=== PATIENT | male | born 1965 | race Caucasian/White ===

== ENCOUNTER 2021-07-15 15:43 | Inpatient (IN) ==
[2021-07-15] MEDS ORDERED: HEPARIN SOD (PORCINE) 1000 UNIT/ML ONE (15:48)
[2021-07-15] MEDS ORDERED: TICAGRELOR 90 MG TAB PO ONE (15:48)
[2021-07-15] MEDS ORDERED: AMIODARONE 150MG / 100ML D5W IV ONE (15:48)
[2021-07-15] MEDS ORDERED: HEPARIN (PORCINE) 1000 UNIT/ML 10 ML (CATH LAB USE ONLY) ONE (15:50)
[2021-07-15] MEDS ORDERED: niCARdipine HCL INJ 2.5 MG/ML 10 ML AMP ONE (15:50)
[2021-07-15] MEDS ORDERED: MIDAZOLAM HCL 1 MG/ML 2ML VIAL ONE (15:50)
[2021-07-15] MEDS ORDERED: NITROGLYCERIN/D5W 100MCG/ML 20ML SYR ONE (15:51)
[2021-07-15] MEDS ORDERED: fentaNYL citrate 100 MCG/2 ML VIAL ONE (15:51)
[2021-07-15] MEDS ORDERED: METOPROLOL TARTRATE 1 MG/ML VIAL IV ONE (15:56)
[2021-07-15 16:05] LABS: Basophils % (auto) 0.7 %; Eosinophils # (auto) 0.23 K/uL (0-0.5); Eosinophils % (auto) 1.5 %; Hematocrit (blood only) 41.5 % (42-52); Immature Granulocytes # (auto) 0.22 K/uL (0.00-0.02); Immature Granulocytes % (auto) 1.5 %; Lymphocytes # (auto) 4.83 K/uL (1.2-3.4); Mean Corpuscular Hemoglobin 32.5 pg (25-34); Mean Corpuscular Hgb Conc 36.1 g/dL (32-36); Mean Corpuscular Volume 89.8 fL (80-100); Mean Platelet Volume 10.7 fL (7.4-10.4); Monocytes # (auto) 1.08 K/uL (0.11-0.59); Monocytes % (auto) 7.1 %; Neutrophils # (auto) 8.65 K/uL (1.4-6.5); Neutrophils % (auto) 57.2 %; Platelet Count 252 K/uL (130-400); RDW Coefficient of Variation 12.6 % (11.5-14.5); RDW Standard Deviation 40.8 fL (36.4-46.3); Red Blood Count 4.62 M/uL (4.7-6.1); White Blood Count 15.11 K/uL (4.8-10.8)
--- NOTE | 2021-07-15 16:07 | Pre Anesthesia Assessment ---
Date of Service July 15, 2021 Pre Sedation Assessment Vital Signs Temp Pulse Resp BP Pulse Ox 07/15/21 15:58 155 H 155/123 H 07/15/21 15:45 98.6 F 155 H 20 155/123 H 89 L Cardiovascular + irregularly irregular Respiratory normal respiratory effort, lungs clear to auscultation Pre-Sedation Airway Assessment Smoking Status: Never smoker Hx Sleep Apnea: No Hx Difficult Intubation: No Short, Thick Neck: No Thyromental Distance: > or= 3.5 Finger Breadths Oral Cavity: + WNL Mallampati Class: III ASA: ASA4 Procedure Planning Contraindications for Sedation: none Current Medications Reviewed: Yes Notes The planned sedation has been discussed with the patient. Informed Consent was obtained. I have identified the patient, determined the appropriateness of sedation and have assessed the patient immediately prior to the procedure. All medicine(s) and interventions are by my order.
[2021-07-15 16:10] LABS: iSTAT Creatinine 1.6 mg/dl (0.6-1.3); iSTAT Hemoglobin 13.9 g/dl (14.0-18.0); iSTAT Ionized Calcium 1.15 mmol/l (1.12-1.32); iSTAT Potassium 3.8 mmol/L (3.3-5.0)
--- NOTE | 2021-07-15 16:12 | Cardiology Consultation ---
Date of Consultation July 15, 2021 Assessment & Plan (1) Cardiac arrest: Presentation consistent with a cardiac arrest secondary to acute IA and recommend proceeding with emergent cardiac catheterization and likely primary PCI. No apparent contraindications to procedure. Given IV heparin and ticagrelor 180 mg in the ED. Further recommendations pending findings of coronary angiography. History of Present Illness History of Present Illness 55-year-old man here after out of hospital cardiac arrest with post ROSC ECG concerning for acute IA. Patient seen emergently in the ED after heart alert activated en route. No known prior cardiac history. No other known medical issues or medications. 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 Received immediate bystander CPR. Had a total of 2 shocks in the field before ROSC. Total CPR around 8 minutes. Post ROSC confused but awake. In ED again confused but endorsed chest pain. No other recollection of the event. ECG showed A. fib with RVR to the 150s with inferior ST elevations. Hemodynamically stable. Allergies Allergy/AdvReac Type Severity Reaction Status Date / Time No Known Allergies Allergy Verified 07/15/21 15:53 Home Medications Medication Instructions Recorded Confirmed Type No Known Home Medications 07/15/21 07/15/21 History Patient History Social History Smoking Status: Never smoker Feels Safe at Home: Yes Review of Systems Review of Systems: Not obtained in the setting of emergent situation Physical Exam Physical Exam: General: Confused HEENT: Sclerae anicteric Lungs: Clear anteriorly Cardiac: Tachycardic, irregularly irregular Vascular: 2+ radial bilaterally Abdomen: Soft Extremities: Well perfused, no peripheral edema Results & Data ([facility]) Vital Signs (Past 12 Hours) Vital Signs Temp Pulse Resp BP Pulse Ox 07/15/21 15:58 155 H 155/123 H 07/15/21 15:45 98.6 F 155 H 20 155/123 H 89 L PG Care Time/CCT Total # of Minutes Spent Total Time Spent with Patient: Total time spent is greater than 50% in coordination of care (as documented) at patient's floor/unit and/or counseling patient: Coding Level of Care Code 97584 Inpt Consult Level 4 Diagnoses Cardiac arrest I46.9
[2021-07-15 16:15] LABS: Partial Thromboplastin Ratio 0.9; Partial Thromboplastin Time 23.1 Seconds (21.0-31.0)
--- NOTE | 2021-07-15 16:15 | Electrocardiogram Report ---
Test Reason : Blood Pressure : / mmHG Vent. Rate : 150 BPM Atrial Rate : 141 BPM P-R Int : 000 ms QRS Dur : 100 ms QT Int : 286 ms P-R-T Axes : 000 046 141 degrees QTc Int : 451 ms Atrial fibrillation with rapid ventricular response Incomplete right bundle branch block ST elevation consider inferior injury or acute infarct ACUTE DE / STEMI Consider right ventricular involvement in acute inferior infarct Abnormal ECG No previous ECGs available Confirmed by Kemar Magaña ([id number]) on 07/15/2021 4:14:41 PM Referred By: Confirmed By:Kemar Magaña
[2021-07-15] MEDS ORDERED: ATROPINE SULFATE 0.1 MG/ML 10ML SYR IV ONE (16:22)
--- NOTE | 2021-07-15 16:23 | Emergency Department Note ---
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 They went over he had no pulse. They started CPR. He had CPR for 6 minutes. Please applied AED and he was shocked twice. He woke up for EMS after initially being in the [facility] but almost immediately after this he regained pulses. He was awake talking coming in for EMS. He is complaining that his chest is sore. He is still slightly confused. He denies any headache or change in vision. No belly pain her any other extremity pain. ROS: See above HPI for pertinent positives & negatives. A total of 10 systems reviewed and were otherwise negative. PAST MEDICAL HISTORY:See Below PAST SURGICAL HISTORY:See Below FAMILY HISTORY:See Below SOCIAL HISTORY:See Below HOME MEDICATIONS:See Below ALLERGIES:See Below VITALS:See Below PHYSICAL EXAMINATION: GENERAL: Lying in bed, disheveled, slightly confused HEAD: NC/AT EYE EXAM: normal conjunctiva. PERRL and EOM's grossly intact. OROPHARYNX: no exudate, no erythema, lips, buccal mucosa, and tongue normal and mucous membranes are moist NECK: supple, no nuchal rigidity, no adenopathy, non-tender LUNGS: Clear to auscultation. Normal chest wall mechanics HEART: no murmurs, S1 normal and S2 normal ABDOMEN: abdomen soft, non-tender, normo-active bowel sounds, no masses, no rebound or guarding. UPPER EXTREMITIES: upper extremities are grossly normal. LOWER EXTREMITIES: No pitting edema. NEURO EXAM: Awake oriented to person and place but not year, cranial nerves II- XII grossly intact, normal speech, no gross weakness of arms, no gross weakness of legs. MEDICAL DECISION MAKING: Patient is a 55-year-old male status post cardiac arrest following 2 shocks that presents the ER awake talking but still slightly confused. There is no reported trauma. IVs were established blood work was obtained. Patient was given IV bolus of amiodarone, IV Lopressor 5 mg Brilinta and IV heparin. Heart rate was initially A. fib in the 160s with ST segment elevations in the inferior leads. Initial EKG from EMS just showed A. fib with nonspecific ST wave changes. Heart rate trended down to the low 100s. Heart alert was called after we obtained an EKG upon arrival which showed STEMI. Prior to this I had discussed with Dr. Dickson that this gentleman was coming in. Labs show leukocytosis of 15,000. Significant anemia. BMP with a CO2 of 60 seen [place] secondary to the code. Creatinine was up as well at 1.7 and LFTs were significantly up at 261 and 450. Covid was negative. Chest x-ray was not obtained in the EKG as we did not want to delay Renal Dialysis Technician. Triage Nursing notes reviewed. Limited review of prior medical records performed Vital Signs: reviewed and remarkable for tachycardic Differential diagnosis: Differential diagnoses includes but is not limited to acute coronary syndrome, myocardial infarction, pericarditis, pulmonary embolus, aortic dissection, pneumonia, pneumothorax, musculoskeletal, shingles, esophageal. ER treatment provided: See below Diagnostics interpreted by me: ECG: A. fib rate of 150 Normal axis Inferior STEMI with a right bundle branch block lateral ST depressions and high lateral ST depressions with elevation in aVR Cardiac Monitoring: An order was placed for continuous cardiac monitoring. The monitor shows a rate of 155 with sinus rhythm. Laboratory studies: As stated above and show below. Imaging studies: See below Consultation(s): Patient was seen and evaluated by Dr. Tyler Dickson at bedside in the ER and taken to the Renal Dialysis Technician Procedures: none Critical Care: I have personally spent 35 minutes of critical care time in the direct management of this patient. This includes bedside care, interpretation of diagnostic studies, and testing, discussion with consultants, patient, and family members, and other required patient management activities. This 35 minutes is in excess of all separately billable procedures. Past Med/Surg History Medical History (Updated 07/15/21 @ 18:54 by Amaury Elmore MD) Acute kidney injury Atrial fibrillation with rapid ventricular response Cardiogenic shock ST elevation myocardial infarction (STEMI) of inferior wall Transaminitis Social History Smoking Status: Former smoker Do You Dip or Chew Tobacco: Yes; Hx Alcohol Use: Yes Alcohol type: beer Hx Substance Use: No Preferred Language: Mohawk Communication Ability: Effective Insurance Case Manager Required: No Beliefs That Will Affect Care: None Current Living Situation: Family Current Living Situation Comment: Lives with girlfriend and daughter Other Information That Helps Us Care for You: No Feels Safe at Home: Yes Safety Concerns: Feels Safe At This Time Assistive Devices: Glasses Allergies Allergies Allergy/AdvReac Type Severity Reaction Status Date / Time No Known Allergies Allergy Verified 07/15/21 15:53 Home Meds Home Medications Medication Instructions Recorded Confirmed No Known Home Medications 07/15/21 07/15/21 Results & Data (ED) Vital Signs Vital Signs - 24 hr 07/15/21 15:45 07/15/21 15:49 07/15/21 15:50 Temperature 37.0 C Temperature Source Oral Pulse Rate 155 H 162 H 160 H Pulse Rate from SpO2 Sensor 88 Respiratory Rate 20 Respiratory Effort / Characteristics Spontaneous Respiratory Depth Respiratory Pattern Regular Blood Pressure 155/123 H Blood Pressure [Right Arm] Blood Pressure Mean 133 Blood Pressure Mean [Right Arm] Pulse Oximetry 89 L 93 88 L Oxygen Delivery Method Room Air Oxygen Flow Rate Sepsis Recent Fever Within 48 Hours No Sepsis New/Unexplained Change in Mental Status No Sepsis Action Taken by Nursing No Action Required 07/15/21 15:58 07/15/21 16:01 07/15/21 16:09 Temperature Temperature Source Pulse Rate 155 H 114 H Pulse Rate from SpO2 Sensor 88 Respiratory Rate 20 Respiratory Effort / Characteristics Non-Labored Spontaneous Respiratory Depth Normal Respiratory Pattern Regular Blood Pressure 155/123 H 119/89 Blood Pressure [Right Arm] 119/89 Blood Pressure Mean 99 Blood Pressure Mean [Right Arm] 99 Pulse Oximetry 92 95 Oxygen Delivery Method Nasal Cannula Oxygen Flow Rate 2 Sepsis Recent Fever Within 48 Hours Sepsis New/Unexplained Change in Mental Status Sepsis Action Taken by Nursing 07/15/21 16:29 Temperature Temperature Source Pulse Rate 84 Pulse Rate from SpO2 Sensor Respiratory Rate Respiratory Effort / Characteristics Respiratory Depth Respiratory Pattern Blood Pressure Blood Pressure [Right Arm] Blood Pressure Mean Blood Pressure Mean [Right Arm] Pulse Oximetry Oxygen Delivery Method Oxygen Flow Rate Sepsis Recent Fever Within 48 Hours Sepsis New/Unexplained Change in Mental Status Sepsis Action Taken by Nursing Laboratory Data Result diagrams: 07/15/21 15:55 07/15/21 15:55 Lab Results 07/15/21 07/15/21 07/15/21 Range/Units 15:55 15:55 15:55 WBC 15.11 H (4.8-10.8) K/uL RBC 4.62 L (4.7-6.1) M/uL Hgb 15.0 (14.0-18.0) g/dL POC Hgb (14.0-18.0) g/dl Hct 41.5 L (42-52) % POC Hct (42-52) % MCV 89.8 (80-100) fL MCH 32.5 (25-34) pg MCHC 36.1 H (32-36) g/dL RDW Std Deviation 40.8 (36.4-46.3) fL RDW Coeff of Giulia 12.6 (11.5-14.5) % Plt Count 252 (130-400) K/uL MPV 10.7 H (7.4-10.4) fL Immature Gran % (Auto) 1.5 % Neut % (Auto) 57.2 % Lymph % (Auto) 32.0 % Montague % (Auto) 7.1 % Eos % (Auto) 1.5 % Baso % (Auto) 0.7 % Neut # (Auto) 8.65 H (1.4-6.5) K/uL Lymph # (Auto) 4.83 H (1.2-3.4) K/uL Montague # (Auto) 1.08 H (0.11-0.59) K/uL Eos # (Auto) 0.23 (0-0.5) K/uL Baso # (Auto) 0.10 (0-0.2) K/uL Immature Gran # (Auto) 0.22 H (0.00-0.02) K/uL APTT 23.1 (21.0-31.0) Seconds PTT Ratio 0.9 Activ Coag Time Kaolin (94-140) SECONDS POC Sodium (135-144) mmol/L Sodium 141 (136-145) mmol/L POC Potassium (3.3-5.0) mmol/L Potassium 3.8 (3.5-5.1) mmol/L POC Chloride (101-112) mmol/L Chloride 112 H (98-107) mmol/L Carbon Dioxide 16 L (21-32) mmol/L POC Total CO2 (24-31) mmol/L Anion Gap 14.0 H (3-11) POC Anion Gap (16-25) mmol/L POC BUN (7-18) mg/dl BUN 22 H (7-18) mg/dl Creatinine 1.73 H (0.6-1.4) mg/dl POC Creatinine (0.6-1.3) mg/dl Est Cr Clr Drug Dosing Not Reportable Est GFR ( Amer) 51.1 ml/min Est GFR (Non-Af Amer) 44.1 ml/min BUN/Creatinine Ratio 12.9 (10-20) Glucose 201 H (70-99) mg/dl POC Glucose (other) (70-99) mg/dl Calcium 9.1 (8.5-10.1) mg/dl POC Ioniz Calcium Penny (1.12-1.32) mmol/l Total Bilirubin 0.5 (0.2-1) mg/dl AST 261 H (15-37) U/L ALT 450 H (12-78) U/L Alkaline Phosphatase 57 (45-117) U/L Troponin I 0.269 H* (0-0.045) ng/ml Total Protein 7.3 (6.4-8.2) gm/dl Albumin 3.9 (3.4-5.0) gm/dl Globulin 3.4 (2.5-4.0) gm/dl Albumin/Globulin Ratio 1.1 (0.9-2) Lipase 332 (73-393) U/L Specimen Hemolysis 07/15/21 07/15/21 07/15/21 Range/Units 15:58 16:29 16:42 WBC (4.8-10.8) K/uL RBC (4.7-6.1) M/uL Hgb (14.0-18.0) g/dL POC Hgb 13.9 L (14.0-18.0) g/dl Hct (42-52) % POC Hct 41 L (42-52) % MCV (80-100) fL MCH (25-34) pg MCHC (32-36) g/dL RDW Std Deviation (36.4-46.3) fL RDW Coeff of Giulia (11.5-14.5) % Plt Count (130-400) K/uL MPV (7.4-10.4) fL Immature Gran % (Auto) % Neut % (Auto) % Lymph % (Auto) % Montague % (Auto) % Eos % (Auto) % Baso % (Auto) % Neut # (Auto) (1.4-6.5) K/uL Lymph # (Auto) (1.2-3.4) K/uL [place]ague # (Auto) (0.11-0.59) K/uL Eos # (Auto) (0-0.5) K/uL Baso # (Auto) (0-0.2) K/uL Immature Gran # (Auto) (0.00-0.02) K/uL APTT (21.0-31.0) Seconds PTT Ratio Activ Coag Time Kaolin 169 H 213 H (94-140) SECONDS POC Sodium 143 (135-144) mmol/L Sodium (136-145) mmol/L POC Potassium 3.8 (3.3-5.0) mmol/L Potassium (3.5-5.1) mmol/L POC Chloride 110 (101-112) mmol/L Chloride (98-107) mmol/L Carbon Dioxide (21-32) mmol/L POC Total CO2 17 L (24-31) mmol/L Anion Gap (3-11) POC Anion Gap 21.0 (16-25) mmol/L POC BUN 22 H (7-18) mg/dl BUN (7-18) mg/dl Creatinine (0.6-1.4) mg/dl POC Creatinine 1.6 H (0.6-1.3) mg/dl Est Cr Clr Drug Dosing Est GFR ( Amer) ml/min Est GFR (Non-Af Amer) ml/min BUN/Creatinine Ratio (10-20) Glucose (70-99) mg/dl POC Glucose (other) 202 H (70-99) mg/dl Calcium (8.5-10.1) mg/dl POC Ioniz Calcium Penny 1.15 (1.12-1.32) mmol/l Total Bilirubin (0.2-1) mg/dl AST (15-37) U/L ALT (12-78) U/L Alkaline Phosphatase (45-117) U/L Troponin I (0-0.045) ng/ml Total Protein (6.4-8.2) gm/dl Albumin (3.4-5.0) gm/dl Globulin (2.5-4.0) gm/dl Albumin/Globulin Ratio (0.9-2) Lipase (73-393) U/L Specimen Hemolysis Administered Medications Sodium Chloride (Nss 1000ml) 1,000 mls @ 100 mls/hr IV .Q10H [id number] Last Admin: 07/15/21 18:12 Dose: 100 mls/hr Documented by: [id number] Discontinued Medications Amiodarone HCl/Dextrose (Amiodarone 150mg / 100ml D5w) Confirm Administered Dose 150 mg IV .STK-MED ONE Stop: 07/15/21 15:49 Last Admin: 07/15/21 18:07 Dose: Not Given Documented by: [id number] Atropine Sulfate (Atropine Sulfate 0.1 Mg/Ml 10ml Syr) Confirm Administered Dose 1 mg IV .STK-MED ONE Stop: 07/15/21 16:23 Last Admin: 07/15/21 16:42 Dose: Not Given Documented by: [id number] Fentanyl Citrate (Fentanyl Citrate 100 Mcg/2 Ml Vial) Confirm Administered Dose 100 mcg .ROUTE .STPipewise-MED ONE Stop: 07/15/21 15:52 Last Admin: 07/15/21 16:41 Dose: 50 mcg Documented by: [id number] Heparin Sodium (Porcine) (Heparin Sod (Porcine) 1000 Unit/Ml) Confirm Administered Dose 1,000 units .ROUTE .STK-MED ONE Stop: 07/15/21 15:49 Last Admin: 07/15/21 18:07 Dose: Not Given Documented by: [id number] Heparin Sodium (Porcine) (Heparin (Porcine) 1000 Unit/Ml 10 Ml (Renal Dialysis Technician Use Only)) Confirm Administered Dose 10,000 units .ROUTE .STPipewise-MED ONE Stop: 07/15/21 15:51 Last Admin: 07/15/21 16:42 Dose: 6,000 units Documented by: [id number] Heparin Sodium/Sodium Chloride (Heparin In Nss Infusion 1000 Unit/500 Ml (2 U/Ml) Bag) Confirm Administered Dose 3,000 units IV .STPipewise-MED ONE Stop: 07/15/21 15:52 Last Admin: 07/15/21 16:41 Dose: 3,000 units Documented by: [id number] Metoprolol Tartrate (Metoprolol Tartrate 1 Mg/Ml Vial) Confirm Administered Dose 5 mg IV .STK-MED ONE Stop: 07/15/21 15:57 Last Admin: 07/15/21 15:58 Dose: 5 mg Documented by: [id number] Midazolam HCl (Midazolam Hcl 1 Mg/Ml 2ml Vial) Confirm Administered Dose 2 mg .ROUTE .STK-MED ONE Stop: 07/15/21 15:51 Last Admin: 07/15/21 16:41 Dose: 1 mg Documented by: [id number] Nicardipine HCl (Nicardipine Hcl Inj 2.5 Mg/Ml 10 Ml Amp) Confirm Administered Dose 25 mg .ROUTE .STK-MED ONE Stop: 07/15/21 15:51 Last Admin: 07/15/21 16:42 Dose: 25 mg Documented by: [id number] Nitroglycerin/Dextrose (Nitroglycerin/D5w 100mcg/Ml 20ml Syr) Confirm Administered Dose 2,000 mcg .ROUTE .STK-MED ONE Stop: 07/15/21 15:52 Last Admin: 07/15/21 16:41 Dose: 2,000 mcg Documented by: [id number] Norepinephrine Bitartrate (Norepinephrine Bitartrate 1 Mg/Ml 4 Ml Vial (Renal Dialysis Technician Use Only)) Confirm Administered Dose 8 mg .ROUTE .STK-MED ONE Stop: 07/15/21 16:28 Last Admin: 07/15/21 16:42 Dose: 8 mg Documented by: [id number] Ticagrelor (Ticagrelor 90 Mg Tab) Confirm Administered Dose 180 mg PO .STK-MED ONE Stop: 07/15/21 15:49 Last Admin: 07/15/21 16:42 Dose: 180 mg Documented by: [id number] Discharge Plan Visit Data Chief Complaint: Cardiac Arrest/CPR Stated Complaint: HEART ALERT ED Provider: Anthony Larson Discharge Problem: Cardiac arrest, ST elevation myocardial infarction (STEMI) of inferior wall, Elevated troponin Patient Disposition: Admitted As Inpatient Discharge Instructions Interventions: ED Discharge Assessment Last Done: 07/15/21 16:09
[2021-07-15] MEDS ORDERED: NOREPINEPHRINE BITARTRATE 1 MG/ML 4 ML VIAL (CATH LAB USE ONLY) ONE (16:27)
[2021-07-15 16:55] LABS: Alanine Aminotransferase 450 U/L (12-78); Albumin Globulin Ratio 1.1 (0.9-2); Albumin Level 3.9 gm/dl (3.4-5.0); Alkaline Phosphatase 57 U/L (45-117); Aspartate Aminotransferase 261 U/L (15-37); BUN Creatinine Ratio 12.9 (10-20); Bilirubin,Total 0.5 mg/dl (0.2-1); Blood Urea Nitrogen 22 mg/dl (7-18); Calcium 9.1 mg/dl (8.5-10.1); Carbon Dioxide 16 mmol/L (21-32); Chloride 112 mmol/L (98-107); Est GFR (African American) 51.1 ml/min; Est GFR (Non-African American) 44.1 ml/min; Globulin 3.4 gm/dl (2.5-4.0); Glucose 201 mg/dl (70-99); Lipase 332 U/L (73-393); Potassium 3.8 mmol/L (3.5-5.1); Sodium 141 mmol/L (136-145); Total Protein 7.3 gm/dl (6.4-8.2); Troponin I 0.269 ng/ml (0-0.045)
[2021-07-15] MEDS ORDERED: NITROGLYCERIN SL 0.4 MG/TAB TAB SL PRN (16:55)
[2021-07-15] MEDS ORDERED: ONDANSETRON INJ 2 MG/ML 2 ML VIAL IV PRN (16:55)
[2021-07-15] MEDS ORDERED: ACETAMINOPHEN 325 MG TAB PO PRN (16:55)
--- NOTE | 2021-07-15 16:55 | Post Anesthesia Assessment ---
Date of Service July 15, 2021 Post Sedation Assessment Vital Signs Temp Pulse Resp BP BP Pulse Ox 07/15/21 16:09 114 H 20 95 07/15/21 16:01 119/89 07/15/21 15:58 155 H 155/123 H 07/15/21 15:45 98.6 F 155 H 20 155/123 H 89 L Recovery Score Activity: Moves 4 extremities Respiration: Deep Breath/Cough Circulation: +/-20% PreAnes Value Consciousness: Fully Awake Oxygen Saturation: O2 needed for >90% Discharge Sedation Level of Care: Fast Track Phase II Post Sedation Plan On clinical assessment, the patient appears to have tolerated the sedation without complications. Patient is recovering as anticipated. Patient will continue to be monitored by nursing and may be discharged when sedation discharge criteria are met per below protocol. Upon Completions of procedure up to 15 minutes continue every 5 minute vital signs and the P.A.R. score; then discharge to a Phase I or Fast Track to Phase II per the following guidelines: * Discharge Patient to appropriate Phase II area if PAR is 8 or greater or return to pre- procedure baseline. The post - procedure orders will be as directed. * If PAR score is less than 8 or not return to pre-procedure baseline then patient will follow Phase I monitoring till PAR is reached for Phase II. The Phase I may be done in procedure room or may call to secure a Phase I area. * If naloxone or flumazenil are used for reversal, hold in Phase I for continued monitoring from when last reversal dose was given for a minimum of 60 minutes or longer pending the nurse and/or physician discretion of patient condition before discharge to Phase II. Please call the Sedation Physician to re-evaluate and complete post-note for discharge to Phase II area. Do NOT discharge from procedure sedation or Phase 1 until post- sedation evaluation note is complete by procedure /sedation MD Sedation Discharge Instructions to be given to the patient at discharge to home.
[2021-07-15] MEDS ORDERED: ICU PROTOCOL FOR HYPERGLYCEMIA PRN (17:00)
--- NOTE | 2021-07-15 17:31 | Cardiac Catheterization ---
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 Cardiac Status Clinical evaluation leading to the procedure CAD Presenation: STEMI Anginal Classification: CCS IV Heart Failure: No Cardiogenic Shock within 24 Hours: Yes Cardiac Arrest within 24 Hours: Yes Imaging Studies Past 6 Months: No Stress Studies Past 6 Months: No Left Ventricular Angiography EF (%): 45-50 Wall Motion: Inferior (Hypokinetic) Mitral Regurgitation: None Diagnostic Physicians Name: Wolf Dickson MD Status: Emergency Closure Device Percutaneous Entry Location: Radial Closure Device: Radial Band Recommendations: PCI without planned CABG PCI Indication: Immediate PCI for STEMI First Noted: First EKG Reason For Delay in PCI:: Cardiac Arrest &/or Lesion Segment Name: Proximal RCA Culprit Artery: Yes Stenosis Prior to Rx (%): 100 Chronic Total Occlusion: No IVUS: No FFR: No Pre-Procedure FILI Flow: 0 Previously Treated Lesion: No Lesion Complexity: Non-High/Non-C Lesion Length (mm): 12 Thrombus Present: Yes Bifurcation Lesion: No Guidewire Across Lesion: Stenosis Post-Procedure (%): 0 Post-Procedure FILI Flow: 3 Devices(s) Deployed: Yes Yes Intraprocedure Events Significant Disection: No Perforation: No Cardiac Cath Procedure Full Procedure Date July 15, 2021 Pre-Procedure Diagnosis Pre-Procedure Diagnosis: STEMI AUC Score AUC Score: 9 Post-Procedure Diagnosis Post-Procedure Diagnosis: Severe CAD and Normal Intracardiac Pressures Procedure(s) Performed Procedure(s) Performed: Coronary Angiography, Left Heart Cath, LV Angiography and Drug Eluting Stent Lacquer Pin Press Operator Wolf Dickson MD Clay Structure Builder And Servicer(s) Yaniv Estimated Blood Loss Estimated Blood Loss: 10 Medication(s) Medication(s): Fentanyl, Heparin, Lidocaine 1%, Nicardipine, Nitroglycerin and Versed Summary of Findings Indication: STEMI/Heart Alert. Witnessed out of hospital cardiac arrest. Post ROSC ECG with A. fib with RVR and inferior ST elevations. Access: 6 Fr right radial artery Catheters: JR Adrian4 guide Findings: LM -normal caliber, no significant disease LAD -medium caliber, proximal/mid luminal irregularities, distal vessel without disease and extends to apex. Small D2 with 40% proximal disease Circumflex -medium caliber 30% mid segment disease extending into large OM 2 RCA -dominant, large caliber, acute 100% proximal occlusion. Right PLB/distal RCA fills retrograde via [id number] collaterals. After flow reestablished noted to have 40% mid segment disease and 50% distal disease before takeoff of small PDA. LVEDP -14 LVEF 45 to 50%, hypokinetic inferior wall -- PCI -- Antithrombotic therapy: Heparin, ticagrelor Procedure: RCA cannulated with JR4 guide Adjunct English Instructor 50 wire passed across lesion into distal vessel Acute proximal RCA lesion predilated with 2.5 compliant balloon Dilated lesion stented with 3.5 x 18 mm Walters drug-eluting stent Stent post-dilated with 4.0 noncompliant balloon Post procedure FILI 3 flow, stent well expanded with minimal residual stenosis and no apparent cardiac complications. Procedure course Arrived in A. fib with RVR given IV amiodarone, metoprolol Became hypotensive with reestablished RCA flow requiring fluid bolus and initiation of norepinephrine Converted to sinus rhythm near end of the case with improvement in blood pressures. Arterial Closure: TR band Summary: 1. Inferior STEMI. Acute on chronic 100% proximal RCA occlusion with [id number] collaterals 2. Mild to moderate non-culprit coronary artery disease -40% mid RCA, 50% distal RCA 30% mid circumflex 40% proximal small D2 3. Normal LV filling pressures 4. Cardiogenic shock requiring vasopressors. 5. Transient atrial fibrillation with RVR 6. Successful PCI of proximal RCA with single drug-eluting stent (3.5 x 18 mm Finesse; postdilated with 4.0 NC). Recommendations: Admit to ICU for continued monitoring Loaded with ticagrelor 180 mg in ED Continue dual-antiplatelet therapy for at least 1 year. Trend troponins until peak, Check Echo Continue amiodarone infusion overnight Start beta-emile when BP allows. High-dose statin Hemodynamics Rest Ao:: 102/73/96 Final Ao: 95/76/83 LV: 92/14 Recommendations Recommendations: PCI without planned CABG Specimens Specimens: None Radiation Exposure (mGy) 1316 Contrast (mls) 80 Fluids (cc crystalloids) Fluids (cc crystalloids): 370 Drains Drains: None Anesthesia Moderate 9344-6067 Procedural Complication(s) None Disposition ICU I attest to the content of the Intraoperative Record and any orders documented therein. Any exceptions are noted below. [facility] Card Cath Procedure Codes Moderate Sedation Procedure 1: Sedation/Anesthesia: 69095 Mod Sedation by the same physician;Init15 Min Child Age 5 & Up Procedure 2: Sedation/Anesthesia: 10523 Mod Sedation by the same physician; Ea [id number] Minutes Stenting Procedure 1: Cardiovascular Stent Procedures: 05384 Perc transluminal revascularization of acute sub/total occl, aMI PG Care Time/CCT Total # of Minutes Spent Total Time Spent with Patient: Total time spent is greater than 50% in coordination of care (as documented) at patient's floor/unit and/or counseling p atient:
[2021-07-15] MEDS: SODIUM CHLORIDE 0.9% 1000ML 1,000 ML IV SCH (18:12)
--- NOTE | 2021-07-15 18:57 | Critical Care Consultation ---
Date of Consultation July 15, 2021 Assessment & Plan (1) Cardiac arrest: (2) Transaminitis: (3) ST elevation myocardial infarction (STEMI) of inferior wall: (4) Cardiogenic shock: (5) Acute kidney injury: (6) Atrial fibrillation with rapid ventricular response: 55-year-old male with a past medical history of obesity who presented to the hospital due to an inferior STEMI. Underwent 1 drug-eluting stent to the RCA. Patient is doing remarkably well despite having an [id number] cardiac arrest. Continue dual antiplatelet therapy. Continue gentle hydration given his DIAMOND and transaminitis. Trend LFTs and renal function. Follow urine output. Suspect transaminitis secondary to initial presentation with cardiogenic shock. Continue amiodarone drip to maintain sinus rhythm. Continue beta-emile. Hold CLIVE inhibitor due to DIAMOND. Continue statin cautiously given transaminitis. May be able to be transferred out of the ICU tomorrow morning. History of Present Illness Reason for Consultation: Post cardiac arrest Attending Physician: Adiel Thorpe DO History of Present Illness 55-year-old male with no severe past history who was working today and collapsed. CPR was immediately started. There is approximately 6 minutes of CPR. AED was placed and he was shocked twice. EMS came to the scene and he was apparently talking when they arrived. He was confused. EKG in the ER demonstrated A. fib with heart rates in the 150s. Inferior ST elevations were noted. Patient was given heparin and Brilinta in the emergency department. He underwent a left heart catheterization by Dr. Dickson. He received amiodarone and metoprolol. He required norepinephrine for hypotension. He converted to a sinus rhythm at the end of the left heart case. Acute on chronic 100% proximal RCA occlusion was noted. Successful PCI of the proximal RCA with single drug- eluting stent was performed. Cardiology is recommending continuation of an amnio drip overnight. Continue with dual antiplatelet therapy. Allergies Allergy/AdvReac Type Severity Reaction Status Date / Time No Known Allergies Allergy Verified 07/15/21 15:53 Home Medications Medication Instructions Recorded Confirmed Type No Known Home Medications 07/15/21 07/15/21 History Patient History Medical History Acute kidney injury Atrial fibrillation with rapid ventricular response Cardiogenic shock ST elevation myocardial infarction (STEMI) of inferior wall Transaminitis Social History Smoking Status: Former smoker Do You Dip or Chew Tobacco: Yes; Hx Alcohol Use: Yes Alcohol type: beer Hx Substance Use: No Preferred Language: Citizen Of [place] Communication Ability: Effective Test 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 Patient is in no apparent distress. Patient is well-developed. Eyes: Pupils are equal round and reactive to light. Conjunctivae are normal. Anicteric sclera. Ears nose, mouth and throat: No obvious deformities. Neck: Trachea is midline. Visual inspection is normal. Respiratory: Clear to auscultation bilaterally. No use of accessory muscles. No significant clubbing noted. Cardiovascular: Regular rate and rhythm. No murmurs. No edema. Gastrointestinal: Normal bowel sounds, soft, nontender and nondistended. No hepatosplenomegaly noted. Musculoskeletal: No cyanosis. Patient is able to move all extremities. Strength is 5 out of 5 in the upper and lower extremities. Skin: No rashes, warm dry and intact. Neurologic: No obvious focal neurological deficits seen. Psychiatric: Alert and oriented x3 with a euthymic affect. Results & Data Results & Data ([facility]) Vital Signs (Past 12 Hours) Vital Signs Temp Pulse Pulse Resp BP BP Pulse Ox 07/15/21 18:07 87 30 H 112/88 94 07/15/21 17:52 78 27 H 105/77 95 07/15/21 17:49 97.7 F 80 19 105/77 94 07/15/21 17:37 80 23 105/77 93 07/15/21 17:22 76 22 109/80 96 07/15/21 17:08 68 10 L 104/77 95 07/15/21 16:09 114 H 20 95 07/15/21 16:01 119/89 119/89 92 07/15/21 15:58 155 H 155/123 H 07/15/21 15:50 160 H 88 L 07/15/21 15:49 162 H 93 07/15/21 15:45 98.6 F 155 H 20 155/123 H 89 L vital signs and labs reviewed. Leukocytosis noted likely reactive to cardiac arrest mild DIAMOND noted. Transaminitis likely secondary to shock liver. Coding Level of Care Code 57688 Inpt Consult Level 3 Diagnoses Cardiac arrest I46.[address] elevation myocardial infarction (STEMI) of inferior wall I21.19 Cardiogenic shock R57.0 Acute kidney injury N17.9 Atrial fibrillation with rapid ventricular response I48.91
--- NOTE | 2021-07-15 20:30 | History & Physical Report ---
Date of Service July 15, 2021 Assessment & Plan (1) ST elevation myocardial infarction (STEMI) of inferior wall: Plan: 55 yo M w/ pMHx. of BMI > 30, prior tobacco use, not seen by a primary doctor presents after STEMI and cardiac arrest STEMI w/ cardiac arrest and 6 minutes of CPR and 2 shocks in the field now s/p PCI w/ 1 PO in the pRCA c/b A. fib w/ RVR - Troponin 0.269(15:55 07/15); continue to trend - currently on DAPT w/ ASA and Brilinta - Metoprolol started at 12.5 BID - Atorvastatin 80 mg started - on Amiodarone drip currently regular rate - A1c and lipid profile ordered to further evaluate for risk factors and address secondary prevention - Nitroglycerin available PRN Transaminitis, potentially 2/2 hypotension AST 261 ALT 450 - currently hemodynamically stable - continue to trend DIAMOND with unclear baseline, potentially 2/2 hypotension Cr. 1.6 - continue to trend, may increase given recent dye load bilateral lower leg lesions - unclear etiology, may benefit from further outpatient evaluation and treatment tobacco use disorder - discussed quitting and patient is at the contemplative/preparation stage of change - continue to support and encourage Code: full Diet: HH (2) Cardiogenic shock: (3) Acute kidney injury: (4) Atrial fibrillation with rapid ventricular response: (5) Transaminitis: (6) Cardiac arrest: Admission and Anticipated Discharge Date Admission Date: July 15, 2021 History of Present Illness Chief Complaint: Heart attack Primary Care Provider: NO PCP Héctor Munguia (Matt) is here after a cardiac arrest at work. He does not remember the event but does remember going to work and then remembers waking up in the hospital. He does not have a primary care doctor and is not currently on any medications. He did not have any preceding illness. He does have bilateral leg lesions that have been present for a while, he did see a doctor at that time but did not get any medication for this and they have been stable. He has smoked from ages [age] unclear how many packs/day, he currently chews tobacco. He does not drink and smokes marijuana occasionally but does not use any other recreational drugs. he has no known drug allergies. EMS/prior to admission: 6-8 minutes of CPR, 2 shocks achieved ROSC ER course: - Heparin, Brilinta Cardiology course: s/p L heart cath w/ 100% RCA proximal occlusion now s/p PO placement - Norepinephrine required for hypotension - Amiodarone drip overnight - Metoprolol Allergies Allergy/AdvReac Type Severity Reaction Status Date / Time No Known Allergies Allergy Verified 07/15/21 15:53 Home Medications Medication Instructions Recorded Confirmed Type No Known Home Medications 07/15/21 07/15/21 History Past Med/Surg History Medical History Acute kidney injury Atrial fibrillation with rapid ventricular response Cardiogenic shock ST elevation myocardial infarction (STEMI) of inferior wall Transaminitis Social History Smoking Status: Former smoker Do You Dip or Chew Tobacco: Yes; Hx Alcohol Use: Yes Alcohol type: beer Hx Substance Use: No Preferred Language: Estonian Communication Ability: Effective Director Surface Transportation Required: No Beliefs That Will Affect Care: None Current Living Situation: Family Current Living Situation Comment: Lives with girlfriend and daughter Other Information That Helps Us Care for You: No Feels Safe at Home: Yes Safety Concerns: Feels Safe At This Time Assistive Devices: None and Glasses Review of Systems Review of Systems: Constitutional: denies fevers, chills, nausea, vomiting, night sweats, weight loss ENT: denies rhinorrhea, stuffiness, sneezing Cardiac: denies palpitations admits chest pain Pulm.: denies cough, shortness of breath, trouble breathing, sputum production GI: denies diarrhea, constipation, blood in stool : denies urgency, frequency, dysuria Physical Exam Constitutional: WD/WN, vitals as above Eyes: PERRL, conjunctivae normal, anicteric sclerae ENMT: external ear and nose normal, oropharynx normal Neck: normal visual inspection Respiratory: normal respiratory effort, lungs clear to auscultation Cardiovascular: RRR, no murmur, no edema Chest (Breasts): Additional Comments: - tender to palpation Gastrointestinal (Abdomen): normal bowel sounds, soft, nontender, no hepatosplenomegaly Musculoskeletal: no cyanosis or clubbing, extremities motor strength 5/5 Skin: no rashes, warm and dry Psychiatric: Orientation: alert, oriented to person, oriented to place and oriented to time Results & Data Results & Data ([facility]) Vital Signs (Past 12 Hours) Vital Signs Temp Pulse Pulse Resp BP BP Pulse Ox 07/15/21 18:07 87 30 H 112/88 94 07/15/21 17:52 78 27 H 105/77 95 07/15/21 17:49 36.5 C 80 19 105/77 94 07/15/21 17:37 80 23 105/77 93 07/15/21 17:22 76 22 109/80 96 07/15/21 17:08 68 10 L 104/77 95 07/15/21 16:29 84 07/15/21 16:09 114 H 20 95 07/15/21 16:01 119/89 119/89 92 07/15/21 15:58 155 H 155/123 H 07/15/21 15:50 160 H 88 L 07/15/21 15:49 162 H 93 07/15/21 15:45 37.0 C 155 H 20 155/123 H 89 L CBC Results Results Complete Blood Count Results: RBC 4.05 M/uL (4.7-6.1) L 07/16/21 WBC 10.61 K/uL (4.8-10.8) 07/16/21 Hgb 13.0 g/dL (14.0-18.0) L 07/16/21 Hct 36.1 % (42-52) L 07/16/21 Plt Count 135 K/uL (130-400) 07/16/21 Chemistry (BMP) Results BMP Results: Sodium 142 mmol/L (136-145) 07/16/21 Potassium 3.7 mmol/L (3.5-5.1) 07/16/21 Chloride 113 mmol/L (98-107) H 07/16/21 BUN 21 mg/dl (7-18) H 07/16/21 Creatinine 1.00 mg/dl (0.6-1.4) 07/16/21 Glucose 124 mg/dl (70-99) H 07/16/21 Code Status & VTE Plan VTE Prophylaxis Plan VTE Prophylaxis will be ordered: Yes Critical Care Time 40 minutes Supervising Physician Co-Signing Physician Notes Attending addendum: I have physically seen this patient, have supervised the medical residents activities, and agree with the H&P unless as otherwise noted. Assessment and Plan: Inferior wall STEMI/status post cardiac arrest with 6 minutes CPR and 2 shocks in the field/cardiogenic shock/atrial fib with RVR- Presented as heart alert Emergent cardiac catheterization with Dr. Dickson status post PCI with 1 PO in the RCA Postprocedure A. fib with RVR Admission to ICU post procedure Continue medications as begun per Dr. Dickson: Metoprolol, atorvastatin, amiodarone drip CBC with differential, chemistry profile, hemoglobin A1c and fasting lipid profile in the a.m. 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 If creatinine is persistently elevated, do imaging in the a.m. Remaining 10 notations as noted Resident Activity Tracking Resident Involvement: Resident Care Provided Care Provided: Adult Hospital Medicine
[2021-07-15] MEDS: METOPROLOL TARTRATE 25 MG TAB PO SCH (20:31)
[2021-07-16] MEDS: SODIUM CHLORIDE 0.9% 1000ML 1,000 ML IV SCH (04:20)
[2021-07-16] MEDS: TICAGRELOR 90 MG TAB PO SCH ×2 (05:33→20:46)
--- NOTE | 2021-07-16 05:43 | Hospitalist Progress Note ---
Date of Service July 16, 2021 Assessment & Plan (1) ST elevation myocardial infarction (STEMI) of inferior wall: Plan: 55 yo M w/ pMHx. of BMI > 30, prior tobacco use, not seen by a primary doctor presents after STEMI and cardiac arrest Acute Coronary Syndrome / STEMI -- s/p PCI with 1 PO in the pRCA * Presented as syncope in the field, requiring CPR x 6 minutes and 2 shocks prior to arrival * s/p PCI with 1 PO in the pRCA * Continue DAPT: ASA, Brilanta * Continue metoprolol 12.5mg b.i.d. * Continue atorvastatin 80mg daily * TTE: Mild inferior wall hypokinesis, LVEF 55-60% * Await lipids, A1c * Nitro p.r.n. * Will need cardiac rehabilitation Atrial Fibrillation with RVR -- resolved * In setting of NSTEMI - now resolved * Continue amiodarone gtt * Metoprolol, as above * Can consider event monitor as outpatient to aid with determination / need for anticoagulation * Maintain K>4, Mg>2 Transaminitis -- AST 260, ALT 450 * Likely secondary to hepatic hypoperfusion in setting of cardiogenic shock from STEMI * Continue to trend DIAMOND -- resolved * Cr 1.6 on arrival, improved (Cr 1.0) s/p fluids * Unknown baseline, but do suspect prerenal hypoperfusion toward contribution * Trend. 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 Feeling better. No chest pain or shortness of breath. Admitted that what happened was because of a long time of self-neglect. Vitals noted, in general he is awake and alert pleasant no distress. HEENT normocephalic atraumatic mucous membranes moist. Breathing unlabored no accessory muscle use good effort. No focal neuro deficits. STEMI/cardiac arrest status post ROSCdoing amazingly well. Continue med management and close observation, secondary risk reduction. Discussed medications/lifestyle/tobacco. Transaminitis almost certainly shock liver from his time without meaningful circulation, likewise his AKIwhich has improved nicely. Follow A. fib, given context, may be able to look at it as provoked. At the same time we will definitely want at least ambulatory monitoring. Subjective No acute events overnight. Patient seen at the bedside this morning, does report chest wall pain that worsens with deep inspiration or with coughing, otherwise does not bother him if he is lying still. Breathing is adequate, no shortness of breath. Endorses a good appetite. 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 No nausea. Was unable to get much sleep, but is going to try today. Review of Systems Review of Systems: As per HPI Physical Exam Physical Exam: General: Tired appearing 55-year-old male who is lying back in his hospital bed, asleep upon my arrival. He awakens easily and is in no acute distress. HEENT: NCAT. Eyes - Sclera are white, anicteric, and without injection. No JVD. Cardiac: Normal rate and regular rhythm; S1 and S2 present with no murmurs, rubs, or gallops. Pulmonary: Good respiratory effort with symmetric expansion of the chest. No use of accessory muscles. Lungs were clear to auscultation bilaterally with no crackles or wheezes. Abdominal: Normoactive bowel sounds. Abdomen was soft, nondistended, and non- tender to palpation. Extremities: Upper and lower extremities are warm and well perfused. Right radial dressings clean dry and intact. Anterior shins do demonstrate large, well-defined multicolored plaques vs. patches. Rough surface. No peripheral edema. Psych: Well-developed, well-nourished, appropriately dressed for occasion. Behavior is cooperative and appropriate. Affect is WNL. Insight is appropriate. Results & Data Results & Data ([facility]) Vital Signs (Past 12 Hours) Vital Signs Temp Pulse Pulse Resp BP BP Pulse Ox 07/16/21 04:07 71 24 168/120 H 96 07/16/21 03:52 74 23 162/87 H 96 07/16/21 03:37 67 18 158/120 H 99 07/16/21 03:22 74 19 154/123 H 96 07/16/21 03:07 72 17 166/96 H 97 07/16/21 02:52 76 19 155/110 H 96 07/16/21 02:43 37.2 C 07/16/21 02:37 68 17 131/103 H 97 07/16/21 02:22 66 17 137/96 97 07/16/21 02:07 75 18 141/94 H 95 07/16/21 01:52 72 18 133/88 95 07/16/21 01:37 75 18 137/93 94 07/16/21 01:22 74 17 132/98 95 07/16/21 01:07 75 20 143/100 H 93 07/16/21 00:52 76 21 138/102 H 95 07/16/21 00:37 87 25 H 145/99 H 98 07/16/21 00:23 84 20 166/103 H 96 07/16/21 00:07 76 19 145/94 H 92 07/15/21 23:52 74 27 H 138/99 95 07/15/21 23:37 74 21 142/103 H 96 07/15/21 23:22 72 21 140/102 H 94 07/15/21 23:10 37.5 C 07/15/21 23:07 75 21 138/106 H 94 07/15/21 22:53 77 21 143/96 H 97 07/15/21 22:37 79 22 138/95 92 07/15/21 22:22 80 21 141/83 H 95 07/15/21 22:07 75 20 142/104 H 94 07/15/21 21:52 74 22 145/92 H 94 07/15/21 21:37 77 21 137/93 93 07/15/21 21:22 76 23 147/99 H 94 07/15/21 21:07 78 18 142/99 H 93 07/15/21 20:52 79 22 135/102 H 94 07/15/21 20:37 82 25 H 139/101 H 96 07/15/21 20:22 85 23 138/93 98 07/15/21 20:07 84 21 138/99 97 07/15/21 19:52 84 22 137/104 H 96 07/15/21 19:37 88 23 131/104 H 97 07/15/21 19:22 87 24 140/94 96 07/15/21 19:20 37.1 C 07/15/21 19:07 82 26 H 133/109 H 96 07/15/21 18:52 86 23 125/93 94 07/15/21 18:37 73 20 121/97 96 07/15/21 18:22 85 19 115/88 96 07/15/21 18:07 87 30 H 112/88 94 07/15/21 17:52 78 27 H 105/77 95 07/15/21 17:49 36.5 C 80 19 105/77 94 Resident Activity Tracking Resident Involvement: Resident Care Provided Care Provided: Adult Hospital Medicine
[2021-07-16 06:18] LABS: Basophils # (auto) 0.01 K/uL (0-0.2); Basophils % (auto) 0.1 %; Eosinophils # (auto) 0.01 K/uL (0-0.5); Eosinophils % (auto) 0.1 %; Hematocrit (blood only) 36.1 % (42-52); Immature Granulocytes # (auto) 0.04 K/uL (0.00-0.02); Immature Granulocytes % (auto) 0.4 %; Lymphocytes # (auto) 1.02 K/uL (1.2-3.4); Lymphocytes % (auto) 9.6 %; Mean Corpuscular Hemoglobin 32.1 pg (25-34); Mean Corpuscular Volume 89.1 fL (80-100); Mean Platelet Volume 10.8 fL (7.4-10.4); Monocytes # (auto) 0.67 K/uL (0.11-0.59); Monocytes % (auto) 6.3 %; Neutrophils # (auto) 8.86 K/uL (1.4-6.5); Neutrophils % (auto) 83.5 %; Platelet Count 135 K/uL (130-400); RDW Coefficient of Variation 12.8 % (11.5-14.5); RDW Standard Deviation 41.1 fL (36.4-46.3); Red Blood Count 4.05 M/uL (4.7-6.1); White Blood Count 10.61 K/uL (4.8-10.8)
[2021-07-16 06:52] LABS: Chol HDL Ratio 4; Cholesterol 128 mg/dl (0-200); HDL Cholesterol 33 mg/dl; LDL Cholesterol Direct 75 mg/dl; Magnesium 2.1 mg/dl (1.8-2.4); Triglycerides 159 mg/dl (0-150); VLDL Cholesterol 32 mg/dl
[2021-07-16 07:36] LABS: BUN Creatinine Ratio 20.6 (10-20); Creatinine Clr Calc Pharmacy 100.8 ml/min; Est GFR (African American) 99.2 ml/min; Est GFR (Non-African American) 85.5 ml/min; Potassium 3.7 mmol/L (3.5-5.1)
[2021-07-16] MEDS: METOPROLOL TARTRATE 25 MG TAB PO SCH ×2 (08:11→20:46)
[2021-07-16] MEDS: ASPIRIN 81 MG ECTAB PO SCH (08:11)
[2021-07-16] MEDS: ATORVASTATIN 40 MG TAB PO SCH (08:11)
[2021-07-16 09:36] LABS: Estimated Average Glucose 123 mg/dl; Hemoglobin A1C 5.9 % (4.5-5.6)
--- NOTE | 2021-07-16 09:55 | XCELERA ---
[id number]
[2021-07-16] MEDS ORDERED: POTASSIUM CHLORIDE CRTAB 20 MEQ TABCR PO ONE (10:45)
[2021-07-16 11:16] LABS: Albumin Level 3.4 gm/dl (3.4-5.0); Bilirubin Direct 0.3 mg/dl (0-0.2); Total Protein 6.4 gm/dl (6.4-8.2); Troponin I 6.61 ng/ml (0-0.045)
--- NOTE | 2021-07-16 11:44 | Critical Care Progress Note ---
Date of Service July 16, 2021 Assessment & Plan (1) Cardiac arrest: (2) Transaminitis: (3) ST elevation myocardial infarction (STEMI) of inferior wall: (4) Cardiogenic shock: (5) Acute kidney injury: (6) Atrial fibrillation with rapid ventricular response: Plan: 55-year-old male with a past medical history of obesity and tobacco abuse who presented to the hospital due to an inferior STEMI. Underwent 1 drug- eluting stent to the RCA. He is doing very well. Hemodynamically stable. LFTs downtrending. Troponin plateaued and downtrending. Echo results reviewed.Continue aspirin, Brilinta, Lipitor and Lopressor. DIAMOND resolved. Primary team can consider starting CLIVE inhibitor. IV fluids have been discontinued. Consider outpatient evaluation for sleep disordered breathing. Tobacco cessation strongly encouraged. Stable for downgrade to medical telemetry status. Admission and Anticipated Discharge Date Admission Date: July 15, 2021 Subjective Patient seen and examined this morning. He endorses some chest pain where he had CPR. Denies shortness of breath. No fevers or chills. Review of Systems Review of Systems: All systems reviewed & are unremarkable except as noted in HPI & below Physical Exam Constitutional: WD/WN, vitals as above Eyes: PERRL, conjunctivae normal, anicteric sclerae ENMT: external ear and nose normal, oropharynx normal Neck: normal visual inspection Respiratory: normal respiratory effort, lungs clear to auscultation Cardiovascular: RRR, no murmur, no edema Chest (Breasts): Additional Comments: - tender to palpation Gastrointestinal (Abdomen): normal bowel sounds, soft, nontender, no hepatosplenomegaly Musculoskeletal: no cyanosis or clubbing, extremities motor strength 5/5 Skin: no rashes, warm and dry Psychiatric: Orientation: alert, oriented to person, oriented to place and oriented to time Results & Data Results & Data ([facility]) Vital Signs (Past 12 Hours) Vital Signs Temp Pulse Pulse Resp BP BP Pulse Ox 07/16/21 09:07 75 21 157/111 H 95 07/16/21 08:07 75 22 166/105 H 96 07/16/21 08:00 98.2 F 66 72 20 153/101 H 97 07/16/21 07:07 66 19 131/108 H 95 07/16/21 06:52 78 18 147/97 H 95 07/16/21 06:37 72 19 140/90 94 07/16/21 06:22 72 22 140/87 94 07/16/21 06:07 70 15 152/85 H 95 07/16/21 05:52 75 16 148/89 H 95 07/16/21 05:37 77 22 149/98 H 95 07/16/21 05:22 74 21 150/92 H 95 07/16/21 05:07 74 16 156/118 H 95 07/16/21 04:52 78 20 151/113 H 98 07/16/21 04:37 78 20 144/91 H 94 07/16/21 04:22 72 21 146/107 H 96 07/16/21 04:07 71 24 168/120 H 96 07/16/21 03:52 74 23 162/87 H 96 07/16/21 03:37 67 18 158/120 H 99 07/16/21 03:22 74 19 154/123 H 96 07/16/21 03:07 72 17 166/96 H 97 07/16/21 02:52 76 19 155/110 H 96 07/16/21 02:43 99.0 F 07/16/21 02:37 68 17 131/103 H 97 07/16/21 02:22 66 17 137/96 97 07/16/21 02:07 75 18 141/94 H 95 07/16/21 01:52 72 18 133/88 95 07/16/21 01:37 75 18 137/93 94 07/16/21 01:22 74 17 132/98 95 07/16/21 01:07 75 20 143/100 H 93 07/16/21 00:52 76 21 138/102 H 95 07/16/21 00:37 87 25 H 145/99 H 98 07/16/21 00:23 84 20 166/103 H 96 07/16/21 00:07 76 19 145/94 H 92 07/15/21 23:52 74 27 H 138/99 95 Pulse Ox 07/16/21 09:07 07/16/21 08:07 07/16/21 08:00 97 07/16/21 07:07 07/16/21 06:52 07/16/21 06:37 07/16/21 06:22 07/16/21 06:07 07/16/21 05:52 07/16/21 05:37 07/16/21 05:22 07/16/21 05:07 07/16/21 04:52 07/16/21 04:37 07/16/21 04:22 07/16/21 04:07 07/16/21 03:52 07/16/21 03:37 07/16/21 03:22 07/16/21 03:07 07/16/21 02:52 07/16/21 02:43 07/16/21 02:37 07/16/21 02:22 07/16/21 02:07 07/16/21 01:52 07/16/21 01:37 07/16/21 01:22 07/16/21 01:07 07/16/21 00:52 07/16/21 00:37 07/16/21 00:23 07/16/21 00:07 07/15/21 23:52 vital signs, labs and imaging reviewed Coding Level of Care Code 57806 Subseq Hosp Care Lvl 2 Diagnoses Cardiac arrest I46.[address] elevation myocardial infarction (STEMI) of inferior wall I21.19 Cardiogenic shock R57.0 Acute kidney injury N17.9 Atrial fibrillation with rapid ventricular response I48.91
--- NOTE | 2021-07-16 12:53 | Cardiology Progress Note ---
Date of Service July 16, 2021 Assessment & Plan (1) Cardiac arrest: Plan: 2. Inferior STEMIacute on chronic proximal RCA occlusion post PCI with PO 3. Atrial fibrillation with RVR 4. Transient cardiogenic shock 5. Dyslipidemia 6. Transaminitis 7. DIAMOND 8. Lower extremity rash -psoriasis versus stasis dermatitis 9. Tobacco use Hemodynamically and electrically stable Only mild troponin elevation, largely preserved LV function No signs of heart failure on exam No access site complications. Continue DAPT with aspirin, ticagrelor Increase metoprolol to 25 mg twice daily Start CLIVE Continue high-intensity statin Okay with transfer to telemetry. From a cardiac standpoint potential discharge tomorrow with cardiology follow-up in 1 to 2 weeks. Admission and Anticipated Discharge Date Admission Date: July 15, 2021 Subjective No events overnight. Reports some chest discomfort with changing position. Denies difficulty breathing. No other new concerns. Telemetry reviewedno significant events. Echo reviewedpreserved LV function with mild inferior hypokinesis. No significant valvular disease. Borderline RV dysfunction, dilated IVC Review of Systems Review of Systems: All systems reviewed & are unremarkable except as noted in HPI & below Physical Exam Physical Exam: General: Comfortable HEENT: Sclerae anicteric Lungs: Clear to auscultation bilaterally, chest wall tender to palpation Cardiac: Regular rate and rhythm, no murmurs. Vascular: Right radial artery access site with no ecchymosis, hematoma. Distal pulse and sensation intact. Abdomen: Soft, nontender Extremities: Well perfused, no peripheral edema. Scaling rash over anterior shins bilaterally Neuro: Nonfocal Psych: Alert orient x3, flat affect Results & Data ([facility]) Vital Signs (Past 12 Hours) Vital Signs Temp Pulse Pulse Resp BP BP Pulse Ox 07/16/21 12:00 98.6 F 67 07/16/21 11:07 67 14 169/89 H 95 07/16/21 10:07 76 17 157/86 H 91 07/16/21 09:07 75 21 157/111 H 95 07/16/21 08:07 75 22 166/105 H 96 07/16/21 08:00 98.2 F 66 72 20 153/101 H 97 07/16/21 07:07 66 19 131/108 H 95 07/16/21 06:52 78 18 147/97 H 95 07/16/21 06:37 72 19 140/90 94 07/16/21 06:22 72 22 140/87 94 07/16/21 06:07 70 15 152/85 H 95 07/16/21 05:52 75 16 148/89 H 95 07/16/21 05:37 77 22 149/98 H 95 07/16/21 05:22 74 21 150/92 H 95 07/16/21 05:07 74 16 156/118 H 95 07/16/21 04:52 78 20 151/113 H 98 07/16/21 04:37 78 20 144/91 H 94 07/16/21 04:22 72 21 146/107 H 96 07/16/21 04:07 71 24 168/120 H 96 07/16/21 03:52 74 23 162/87 H 96 07/16/21 03:37 67 18 158/120 H 99 07/16/21 03:22 74 19 154/123 H 96 07/16/21 03:07 72 17 166/96 H 97 07/16/21 02:52 76 19 155/110 H 96 07/16/21 02:43 99.0 F 07/16/21 02:37 68 17 131/103 H 97 07/16/21 02:22 66 17 137/96 97 07/16/21 02:07 75 18 141/94 H 95 07/16/21 01:52 72 18 133/88 95 07/16/21 01:37 75 18 137/93 94 07/16/21 01:22 74 17 132/98 95 07/16/21 01:07 75 20 143/100 H 93 07/16/21 00:52 76 21 138/102 H 95 Pulse Ox 07/16/21 12:00 07/16/21 11:07 07/16/21 10:07 07/16/21 09:07 07/16/21 08:07 07/16/21 08:00 97 07/16/21 07:07 07/16/21 06:52 07/16/21 06:37 07/16/21 06:22 07/16/21 06:07 07/16/21 05:52 07/16/21 05:37 07/16/21 05:22 07/16/21 05:07 07/16/21 04:52 07/16/21 04:37 07/16/21 04:22 07/16/21 04:07 07/16/21 03:52 07/16/21 03:37 07/16/21 03:22 07/16/21 03:07 07/16/21 02:52 07/16/21 02:43 07/16/21 02:37 07/16/21 02:22 07/16/21 02:07 07/16/21 01:52 07/16/21 01:37 07/16/21 01:22 07/16/21 01:07 07/16/21 00:52 PG Care Time/CCT Total # of Minutes Spent Total Time Spent with Patient: Total time spent is greater than 50% in coordination of care (as documented) at patient's floor/unit and/or counseling patient: Coding Level of Care Code 23455 Subseq Hosp Care Lvl 3 Diagnoses Cardiac arrest I46.9
[2021-07-16] MEDS: lisinopril 5 MG TAB PO SCH (13:55)
--- NOTE | 2021-07-16 16:24 | Electrocardiogram Report ---
Test Reason : Blood Pressure : / mmHG Vent. Rate : 077 BPM Atrial Rate : 077 BPM P-R Int : 164 ms QRS Dur : 094 ms QT Int : 394 ms P-R-T Axes : 030 -01 032 degrees QTc Int : 445 ms Normal sinus rhythm Subacute inferior CA T wave abnormality, consider lateral ischemia Abnormal ECG When compared with ECG of 15-JUL-2021 15:49, Significant changes have occurred Confirmed by Kemar Magaña ([id number]) on 07/16/2021 4:23:45 PM Referred By: REFERRED SELF Confirmed By:Kemar Magaña
--- NOTE | 2021-07-16 16:29 | Electrocardiogram Report ---
Test Reason : Blood Pressure : / mmHG Vent. Rate : 069 BPM Atrial Rate : 069 BPM P-R Int : 158 ms QRS Dur : 096 ms QT Int : 436 ms P-R-T Axes : 024 -05 005 degrees QTc Int : 467 ms Normal sinus rhythm Incomplete right bundle branch block Subacute inferior [place] Abnormal ECG When compared with ECG of 16-JUL-2021 00:14, (unconfirmed) No significant change was found Confirmed by Kemar Magaña ([id number]) on 07/16/2021 4:28:51 PM Referred By: REFERRED SELF Confirmed By:Kemar Magaña
--- NOTE | 2021-07-16 17:07 | Billing Data ---
Date of Service July 16, 2021 Coding Level of Care Code 57306 Subseq Hosp Care Lvl 2
--- NOTE | 2021-07-16 19:51 | Billing Data ---
Date of Service July 16, 2021 Coding Level of Care Code Critical Care 1st - mins
[2021-07-17 06:00] LABS: BUN Creatinine Ratio 14.2 (10-20); Calcium 8.1 mg/dl (8.5-10.1); Creatinine Clr Calc Pharmacy 94.2 ml/min; Est GFR (African American) 91.4 ml/min; Est GFR (Non-African American) 78.8 ml/min; Magnesium 2.1 mg/dl (1.8-2.4); Potassium 3.6 mmol/L (3.5-5.1)
--- NOTE | 2021-07-17 06:28 | Hospitalist Progress Note ---
Date of Service July 17, 2021 Assessment & Plan (1) ST elevation myocardial infarction (STEMI) of inferior wall: Plan: 55 yo M w/ pMHx. of BMI > 30, prior tobacco use, not seen by a primary doctor presents after STEMI and cardiac arrest Acute Coronary Syndrome / STEMI -- s/p PCI with 1 PO in the pRCA * Presented as syncope in the field, requiring CPR x 6 minutes and 2 shocks prior to arrival * s/p PCI with 1 PO in the pRCA * Continue DAPT: ASA, Brilanta * Continue metoprolol 25mg b.i.d. * Continue lisinopril * Start atorvastatin 80mg daily -- once LFTs stabilize * TTE: Mild inferior wall hypokinesis, LVEF 55-60% * Await lipids, A1c * Nitro p.r.n. * Will need cardiac rehabilitation Atrial Fibrillation with RVR -- resolved * In setting of NSTEMI - now resolved * Continue amiodarone gtt * Metoprolol, as above * Can consider event monitor as outpatient to aid with determination / need for anticoagulation * Maintain K>4, Mg>2 Transaminitis -- AST 260, ALT 450 --> 123, 300 --> 80, 246 * Likely secondary to hepatic hypoperfusion in setting of cardiogenic shock from STEMI * Continue to trend * Hold atorvastatin until normalization DIAMOND -- resolved * Cr 1.6 on arrival, improved (Cr 1.0) s/p fluids * Unknown baseline, but do suspect prerenal hypoperfusion toward contribution * Trend. May increase given dye load (PCI) 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, per patient * Etiology unclear at present - recommend biopsy as outpatient * No acute needs Tobacco Use Disorder - discussed quitting and patient is at the contemplative/preparation stage of change - continue to support and encourage Dispo: PCU Diet: HH Consults: Cardiology, previously prop drawer PPX: SCDs, DAPT Code: full (2) Cardiogenic shock: (3) Acute kidney injury: (4) Atrial fibrillation with rapid ventricular response: (5) Transaminitis: (6) Cardiac arrest: Admission and Anticipated Discharge Date Admission Date: July 15, 2021 Subjective Chest wall pain overnight. Did end up utilizing Tylenol, which helped a little, but not much. No deep chest pain. No shortness of breath. On review of history, does say that over the last month, he has been feeling like himself and has been more short of breath. No abdominal pain. No nausea, vomiting. Eager to go home. Review of Systems Review of Systems: as per HPI Physical Exam Physical Exam: General: Tired appearing 55-year-old male who is sitting back in his hospital bed upon my arrival. HEENT: NCAT. Eyes - Sclera are white, anicteric, and without injection. No JVD. Cardiac: Normal rate and regular rhythm; S1 and S2 present with no murmurs, rubs, or gallops. Pulmonary: Good respiratory effort with symmetric expansion of the chest. No use of accessory muscles. Lungs were clear to auscultation bilaterally with no crackles or wheezes. Abdominal: Normoactive bowel sounds. Abdomen was soft, nondistended, and non- tender to palpation. Extremities: Upper and lower extremities are warm and well perfused. Right radial dressings clean dry and intact. Anterior shins do demonstrate large, well-defined multicolored plaques vs. patches. Rough surface. No peripheral edema. Psych: Well-developed, well-nourished, appropriately dressed for occasion. Behavior is cooperative and appropriate. Affect is WNL. Insight is appropriate. Results & Data Results & Data ([facility]) Vital Signs (Past 12 Hours) Vital Signs Temp Pulse Pulse Resp BP Pulse Ox 07/17/21 04:20 37 C 66 19 153/93 H 96 07/17/21 00:00 37 C 76 83 21 167/124 H 96 07/16/21 20:00 37.1 C 74 20 166/108 H 97 Resident Activity Tracking Resident Involvement: Resident Care Provided Care Provided: [facility]
[2021-07-17] MEDS ORDERED: POTASSIUM PHOS 3 MMOL/1 ML INFUSION IV STA (06:30)
[2021-07-17] MEDS ORDERED: POTASSIUM PHOSPHATE 9 MMOL in SODIUM CHLORIDE 0.9% 250 ML IV ONE (06:45)
[2021-07-17 07:03] LABS: Albumin Level 3.6 gm/dl (3.4-5.0); Bilirubin Direct 0.3 mg/dl (0-0.2); Total Protein 6.6 gm/dl (6.4-8.2)
[2021-07-17] MEDS: lisinopril 5 MG TAB PO SCH (08:06)
[2021-07-17] MEDS: ASPIRIN 81 MG ECTAB PO SCH (08:06)
[2021-07-17] MEDS: METOPROLOL TARTRATE 25 MG TAB PO SCH (08:06)
[2021-07-17] MEDS: ATORVASTATIN 40 MG TAB PO SCH (08:07)
[2021-07-17] MEDS: TICAGRELOR 90 MG TAB PO SCH (08:07)
[2021-07-17] MEDS ORDERED: LIDOCAINE 5% 1 PATCH TD SCH (11:00)
--- NOTE | 2021-07-17 11:26 | Discharge Summary ---
Date of Service July 17, 2021 Admission HPI Per Admitting Provider Héctor Munguia (Matt) is here after a cardiac arrest at work. He does not remember the event but does remember going to work and then remembers waking up in the hospital. He does not have a primary care doctor and is not currently on any medications. He did not have any preceding illness. He does have bilateral leg lesions that have been present for a while, he did see a doctor at that time but did not get any medication for this and they have been stable. He has smoked from ages [age] unclear how many packs/day, he currently chews tobacco. He does not drink and smokes marijuana occasionally but does not use any other recreational drugs. he has no known drug allergies. EMS/prior to admission: 6-8 minutes of CPR, 2 shocks achieved ROSC ER course: - Heparin, Brilinta Cardiology course: s/p L heart cath w/ 100% RCA proximal occlusion now s/p PO placement - Norepinephrine required for hypotension - Amiodarone drip overnight - Metoprolol Admission Exam Per Admitting Provider Constitutional: WD/WN, vitals as above Eyes: PERRL, conjunctivae normal, anicteric sclerae ENMT: external ear and nose normal, oropharynx normal Neck: normal visual inspection Respiratory: normal respiratory effort, lungs clear to auscultation Cardiovascular: RRR, no murmur, no edema Chest (Breasts): Additional Comments: - tender to palpation Gastrointestinal (Abdomen): normal bowel sounds, soft, nontender, no hepatosplenomegaly Musculoskeletal: no cyanosis or clubbing, extremities motor strength 5/5 Skin: no rashes, warm and dry Psychiatric: Orientation: alert, oriented to person, oriented to place and oriented to time Principal Diagnosis STEMI s/p PCI with placement of 1 PO in pRCA Discharge Exam General: Tired appearing 55-year-old male who is sitting back in his hospital bed upon my arrival. HEENT: NCAT. Eyes - Sclera are white, anicteric, and without injection. No JVD. Cardiac: Normal rate and regular rhythm; S1 and S2 present with no murmurs, rubs, or gallops. Pulmonary: Good respiratory effort with symmetric expansion of the chest. No use of accessory muscles. Lungs were clear to auscultation bilaterally with no crackles or wheezes. Abdominal: Normoactive bowel sounds. Abdomen was soft, nondistended, and non- tender to palpation. Extremities: Upper and lower extremities are warm and well perfused. Right radial dressings clean dry and intact. Anterior shins do demonstrate large, well-defined multicolored plaques vs. patches. Rough surface. No peripheral edema. Psych: Well-developed, well-nourished, appropriately dressed for occasion. Behavior is cooperative and appropriate. Affect is WNL. Insight is appropriate. Discharge Data Allergies Allergy/AdvReac Type Severity Reaction Status Date / Time No Known Allergies Allergy Verified 07/15/21 15:53 Consultations 07/15/21 17:01 Consult Cardiac Rehabilitation Routine Consult Cement Finisher Apprentice Routine Procedures Performed Operation Date: 07/15/21 16:00 Actual Procedures p Cineradiography w/Routine Exam - Neto Dickson MD s Aspiration/PCI w/PO for Stemi - Neto Dickson MD Ordered Studies 07/15/21 15:49 CL Cath Imgs for PACS use only Stat Hospital Course (1) ST elevation myocardial infarction (STEMI) of inferior wall: 55 yo M w/ pMHx. of BMI > 30, prior tobacco use, not seen by a primary doctor presents after STEMI and cardiac arrest Acute Coronary Syndrome / STEMI -- s/p PCI with 1 PO in the pRCA * Presented as syncope in the field, requiring CPR x 6 minutes and 2 shocks prior to arrival * s/p PCI with 1 PO in the pRCA * TTE: Mild inferior wall hypokinesis, LVEF 55-60% * Continue DAPT: ASA, Brilanta -- for at least 12 months * Metoprolol tartrate 50mg b.i.d. * Lisinopril 10mg daily * Atorvastatin 80mg daily * A1c 5.9% -- recommend counselling, started such while here * F/U with Dr. Dickson in 1-2 weeks on d/c (cardiology) * Please recheck CMP in 10-14 days to recheck renal function s/p lisinopril initiation * BP check within 10 days given new medications Atrial Fibrillation with RVR -- resolved, now in NSR * In setting of NSTEMI - now resolved, s/p amio gtt * Metoprolol, as above * Can consider event monitor as outpatient to aid with determination / need for anticoagulation * Maintain K>4, Mg>2 Transaminitis -- AST 260, ALT 450 --> 123, 300 --> 80, 246 * Likely secondary to hepatic hypoperfusion in setting of cardiogenic shock from STEMI * Continue to trend * Please recheck CMP in 1 week DIAMOND -- resolved * Cr 1.6 on arrival, improved (Cr 1.0) s/p fluids * Unknown baseline, but do suspect prerenal hypoperfusion toward contribution 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, per patient * Etiology unclear at present - recommend biopsy as outpatient * No acute needs Tobacco Use Disorder - discussed quitting and patient is at the contemplative/preparation stage of change - continue to support and encourage Code: FULL CODE (2) Cardiogenic shock: (3) Acute kidney injury: (4) Atrial fibrillation with rapid ventricular response: (5) Transaminitis: (6) Cardiac arrest: Total Time Total Time Spent Total Time Spent (In Minutes): <30 Discharge Plan Discharge Items Patient Disposition: Home - Self-Care Reason For Visit: CARDIAC ARREST Discharge Diagnosis: heart attack (STEMI) Condition on Discharge: Fair Activity: Per Instructions section Non-emergency contact: Primary Care Provider and Shaper Machine Hand Call non-emergency contact if: you have any medication questions, your symptoms worsen, your pain is not controlled, your pain is worsening, your pain is unusual for you and your temperature is above 101 Follow-up/Referrals: PCPJOELLEN [Primary Care Provider] - Diet: Heart Healthy Addtl Attending Provider Instructions: You were seen at [facility] for evaluation of a heart attack. Upon your arrival, you underwent emergency catheterization (a procedure in which the heart's arteries are visualized), which revealed a blockage in one of your heart's arteries. A stent was placed to open this clogged artery. Thankfully, you demonstrated great recovery from this course of events. Your heart function was preserved on testing (ultrasound) following this procedure. Upon discharge, you are going to be started on several medications to prevent further events like this, and to support your heart. Please take the following medications: - Metoprolol tartrate 50mg twice daily (AM/PM) - Lisinopril 10mg daily - Aspirin 81mg daily - Ticagrelor 90mg twice daily (AM/PM) - Atorvastatin 80mg daily - Nitroglycerin NEEDED for new chest pain As discussed, the medications you initiated and the procedures you underwent here are critical to protecting your heart's health. 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 You will engage with cardiac rehabilitation upon discharge to help your heart regain strength; here, you will also learn different exercises that can keep your heart healthy in the long-term. This will be arranged through your credit reference clerk's office. Upon discharge, please establish care with a family doctor / primary care doctor (PCP) within 1-2 weeks to review this visit. At that time, please discuss medications and have your blood pressure checked. You will also have to get a blood test to check your kidney function. The phone number and address of the [facility] is listed below -- you were seen by Dr. Garcia while here, who practices at this office. However, please establish with someone and somewhere that works best for you. The most important part is that you have access to a doctor. Please follow-up with Dr. Dickson, cardiology, in 1-2 weeks upon discharge. His office can be reached at [phone]. In the interim, if you experience any worsening chest pain, palpitations (heart quivering), shortness of breath, nausea, vomiting, lightheadedness, feeling like you're going to pass out, or other worrisome symptoms, please seek medical attention; if symptoms are severe, please report immediately to the ER for evaluation. It has been a pleasure for caring for you while here. We wish you all hte best in your recovery, Anthony Garcia MD Resident Physician [facility] [address], [address] [place], [place] SCHEDULE APPT: Pending Studies at Discharge: No Stand-Alone Forms: [employer], Smoking Cessation Medications and DC Order Prescriptions: New atorvastatin 40 mg Tablet 80 mg PO QAM 30 Days Qty: 60 RF: 1 nitroglycerin [Nitrostat] 0.4 mg Tablet, Sublingual 0.4 mg sublingual PRN PRN (Reason: chest pain) Qty: 30 RF: 0 Brilinta 90 mg Tablet 90 mg PO BID 30 Days Qty: 60 RF: 1 aspirin 81 mg Tablet,Delayed Release (Dr/Ec) 81 mg PO QAM 30 Days Qty: 30 RF: 1 metoprolol tartrate 50 mg tablet 50 mg PO BID Qty: 30 RF: 1 lisinopril 10 mg tablet 10 mg PO DAILY Qty: 30 RF: 1 Discharge Orders: Discharge Order (Routine); Ordered 07/17/21 Ordered By: Anthony Bush/Other Patient Handouts: Heart Attack Dc, Cardiac Rehab Getting Started, Heart Attack Meds, Heart Attack Questions, Heart Attack: Leaving the Hospital, Heart Attack: Back at Home, Heart Attack resuming Sex Admission Data Admit Date/Time: 07/15/21 17:01 Attending Provider: Anthony Renee Admit Provider: Neto Dickson Primary Care Provider: PCP,NO Other Providers: Neto Dickson ; Adiel Thorpe ; Amaury Elmore Other Interventions: Discharge Summary Assessment (RN) Last Done: 07/17/21 13:05 Supervising Physician Co-Signing Physician Notes I personally examined the patient and verified all doe points of history and exam, discussed case, and agree with decision making with Dr Garcia. Feeling better, feeling up to going home. Discussed meds and lifestyle at length. Vitals noted, in general he is awake and alert pleasant no distress. HEENT normocephalic atraumatic mucous membranes moist. Breathing unlabored no accessory muscle use good effort. No focal neuro deficits. STEMI/cardiac arrest status post ROSCdoing amazingly well. Stable for home. Discussed meds 1 at a time, discussed lifestyle as far as tobacco, exercise, eating habits. Discussed secondary risk reduction and self-care. Stable for home. Otherwise as above.
--- NOTE | 2021-07-17 12:01 | Cardiology Progress Note ---
Date of Service July 17, 2021 Assessment & Plan (1) Cardiac arrest: Plan: 2. Inferior STEMIacute on chronic proximal RCA occlusion post PCI with PO 3. Atrial fibrillation with RVR 4. Transient cardiogenic shock 5. Dyslipidemia 6. Transaminitis 7. DIAMOND 8. Lower extremity rash -psoriasis versus stasis dermatitis 9. Tobacco use Troponin peaked, hemodynamically and electrically stable From a cardiac standpoint okay with discharge today. Home on DAPT with aspirin, ticagrelor (please stress again importance of adherence). Increase metoprolol to 50 mg twice daily Increase lisinopril to 10 mg daily Continue atorvastatin 80 mg Follow-up with me in 1 to 2 weeks. Admission and Anticipated Discharge Date Admission Date: July 15, 2021 Subjective No events overnight. Still with some positional chest discomfort, particular with coughing. Telemetry reviewedno significant events. Review of Systems Review of Systems: All systems reviewed & are unremarkable except as noted in HPI & below Physical Exam Physical Exam: General: Comfortable HEENT: Sclerae anicteric Lungs: Clear to auscultation bilaterally, chest wall tender to palpation Cardiac: Regular rate and rhythm, no murmurs. Vascular: Right radial artery access site with no ecchymosis, hematoma. Distal pulse and sensation intact. Abdomen: Soft, nontender Extremities: Well perfused, no peripheral edema. Scaling rash over anterior shins bilaterally Neuro: Nonfocal Psych: Alert orient x3, flat affect Results & Data ([facility]) Vital Signs (Past 12 Hours) Vital Signs Temp Pulse Pulse Resp BP Pulse Ox 07/17/21 08:00 98.4 F 72 72 20 143/100 H 96 07/17/21 04:20 98.6 F 66 19 153/93 H 96 07/17/21 00:00 98.6 F 76 83 21 167/124 H 96 PG Care Time/CCT Total # of Minutes Spent Total Time Spent with Patient: Total time spent is greater than 50% in coordination of care (as documented) at patient's floor/unit and/or counseling patient: Coding Level of Care Code 36579 Subseq Hosp Care Lvl 3 Diagnoses Cardiac arrest I46.9
--- NOTE | 2021-07-17 17:39 | Billing Data ---
Date of Service July 17, 2021 Coding Level of Care Code D/C DAY MANAGEMENT <30 MINS
== END 2021-07-17 14:58 | disposition home or self-care (01) | DRG 246 ==
LOC: ED 15:43 → CC 16:14 → 1E 17:01 → SUATTDRO 17:01